=== PATIENT | female | born 1950 | race Two or more races ===

== ENCOUNTER 2022-03-28 11:43 | Emergency (ER) | payer MEDICARE, OTHER, SELFPAY ==
[2022-03-28 12:02] VITALS: BP 159/55; PULSE 76; RESP 18; TEMP 36.7; O2SAT 96; BMI 36.6
[2022-03-28 12:21] LABS: Glucose, Whole Blood 114 mg/dL (60-115)
[2022-03-28 12:23] LABS: MANUAL DIFF FLAG NO
[2022-03-28 12:32] LABS: Basophils Absolute Auto 0.1 X10*3/uL (0.0-0.2); Basophils Percent Auto 0.3 % (0-2); Eosinophils Absolute Auto 0.3 X10*3/uL (0.0-0.4); Eosinophils Percent Auto 1.5 % (0-4); Hematocrit 32.1 % (37.0-47.0); Hemoglobin 10.2 g/dl (12.0-16.0); Imm Gran Abs Auto 0.25 X10*3/uL (0.00-0.03); Imm Gran Pct Auto 1.5 % (0.0-0.4); Lymphocytes Absolute Auto 1.5 X10*3/uL (1.2-4.9); Lymphocytes Percent Auto 9.1 % (20-40); Mean Corpuscular HGB Conc 31.8 g/dl (31.0-35.0); Mean Corpuscular Hemoglobin 26.5 pg (27.0-33.0); Mean Corpuscular Volume 83.4 fL (80.0-98.0); Monocytes Absolute Auto 1.1 X10*3/uL (0.1-1.2); Monocytes Percent Auto 6.8 % (2-11); Neutrophils Absolute Auto 13.1 x10*3/uL (2.0-8.3); Neutrophils Percent Auto 80.8 % (45-73); Platelet Count 558 X10*3/uL (160-400); Red Blood Count 3.85 X10*6/uL (4.20-5.50); Red Cell Distribution Width 14.7 % (11.0-16.0); White Blood Count 16.2 X10*3/uL (4.8-10.8)
[2022-03-28 12:42] LABS: Anion Gap 15 (12-20); Blood Urea Nitrogen 40 mg/dL (9-16); Calcium 9.7 mg/dL (8.4-10.2); Carbon Dioxide 20 mmol/L (22-29); Chloride 111 mmol/L (96-108); Creatinine Clr Calc Pharmacy 42.8; Estimated Glomerular Filt Rate 37; Glucose Random 122 mg/dL (60-115); Potassium 3.3 mmol/L (3.3-5.1); Sodium 143 mmol/L (135-145)
[2022-03-28 16:47] VITALS: BP 167/63; RESP 18; TEMP 35.9
--- NOTE | 2022-03-28 18:36 | ED_ITS ---
HPI - General Adult General Chief complaint: Overdose Stated complaint: ?med overdose Time Seen by Provider: 03/28/22 18:07 Source: patient Mode of arrival: wheelchair Limitations: no limitations History of Present Illness HPI narrative: 71-year-old female presents with her to caregivers for altered mental status. 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 Patient had increase in blood flow to the right foot she states that is doing better all this was done at [facility]. She was seeing vascular surgeon there. Patient denies any falls or injuries but over the weekend has been increasingly out of it. She has been hallucinating and seeing things that were not there. Patient denies chest pain or cough she is now awake she is alert she does recall seeing his children is able to tell that scared her so she took more Ativan. She is on Ativan she had scripts for oxycodone and hydromorphone as well as the Tylenol with codeine. Related Data Allergies Allergy/AdvReac Type Severity Reaction Status Date / Time No Known Allergies Allergy Verified 03/28/22 12:02 Review of Systems Review of Systems: Review of systems: General: Patient denies any fever chills recent illness or falls Musculoskeletal: Denies back pain or body aches or other injuries HEENT: denies headache, runny nose, ear pain Respiratory: denies shortness of breath, cough Cardiovascular: no chest pain or palpitations : denies dysuria, frequency Abdomen: no nausea vomiting denies abdominal pain Extremities: no swelling, no pain Skin: no diaphoresis Yes all other systems are reviewed and are negative Physical Exam ED Vital Signs: Vital Signs - 24 hr 03/28/22 12:02 03/28/22 16:47 Temperature 98.0 F 96.6 F L Pulse Rate 76 Respiratory Rate 18 18 Blood Pressure 159/55 H 167/63 H Pulse Oximetry 96 BMI result Body Mass Index 36.6 General: Well-appearing well-nourished in no signs of distress HEENT: Normocephalic atraumatic Neck: No signs of JVD, no masses no tenderness or lymphadenopathy Cardiovascular: Regular rate and rhythm Respiratory: Clear to auscultation bilaterally Abdomen: Soft nontender no masses Extremities: Normal pedal pulses right lower leg with signs of revascularization and some shoulder the patient her 2nd toe is purplish black she does have a good pulse to her right lower leg 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 Skin: Dry warm no rashes Back: No tenderness full ROM Medical Decision Making MDM Narrative Medical decision making narrative: Family is concerned about overmedication want the patient to get drug testing seems in her system I educated them on our current urine drug screen and its limitations patient has probably overmedicated she is doing better now could take another day or 2 they have taken with Ativan as well as the hydromorphone mode know what would be safe to give her that would not cause her altered mental status said the only thing that will work the Tylenol as she is not a good candidate for ibuprofen. They are happy with this plan they are happy to go home we did offer admission did offer transfer to [facility] they have fine to go home and follow-up as needed. Lab Data Result diagrams: 03/28/22 12:16 03/28/22 12:16 Labs: Lab Results 03/28/22 03/28/22 03/28/22 Range/Units 12:11 12:16 12:16 WBC 16.2 H (4.8-10.8) X10*3/uL RBC 3.85 L (4.20-5.50) X10*6/uL Hgb 10.2 L (12.0-16.0) g/dl Hct 32.1 L (37.0-47.0) % MCV 83.4 (80.0-98.0) fL MCH 26.5 L (27.0-33.0) pg MCHC 31.8 (31.0-35.0) g/dl RDW 14.7 (11.0-16.0) % Plt Count 558 H (160-400) X10*3/uL MPV 9.0 L (9.4-12.3) fL Immature Gran % (Auto) 1.5 H (0.0-0.4) % Neut % (Auto) 80.8 H (45-73) % Lymph % (Auto) 9.1 L (20-40) % Mason % (Auto) 6.8 (2-11) % Eos % (Auto) 1.5 (0-4) % Baso % (Auto) 0.3 (0-2) % Lymph # (Auto) 1.5 (1.2-4.9) X10*3/uL Mason # (Auto) 1.1 (0.1-1.2) X10*3/uL Eos # (Auto) 0.3 (0.0-0.4) X10*3/uL Baso # (Auto) 0.1 (0.0-0.2) X10*3/uL Abs Immat Gran (auto) 0.25 H (0.00-0.03) X10*3/uL Absolute Neuts (auto) 13.1 H (2.0-8.3) x10*3/uL Absolute Nucleated RBC 0.000 (0.0-0.012) X10*3/uL Nucleated RBC % (auto) 0.0 (0.0-0.2) /100WBC Sodium 143 (135-145) mmol/L Potassium 3.3 (3.3-5.1) mmol/L Chloride 111 H (96-108) mmol/L Carbon Dioxide 20 L (22-29) mmol/L Anion Gap 15 (12-20) BUN 40 H (9-16) mg/dL Creatinine 1.40 (0.5-1.4) mg/dL Estim Creat Clear Calc 42.8 Estimated GFR 37 POC Glucose 114 (60-115) mg/dL Random Glucose 122 H (60-115) mg/dL Calcium 9.7 (8.4-10.2) mg/dL Discharge Plan Discharge Clinical Impression: Drug overdose, Polypharmacy Patient Disposition: Home, Self-Care Instructions: Adult Overdose (ED), Narcotic Safety (ED), Opioid Safety (ED), Prescription Narcotic Overdose (ED), Benzodiazepine Overdose (ED), Benzodiazepine Abuse (ED) Additional Instructions: Please call for medications tried Tylenol he can try half dose of the hydromorphone as needed do not mix this with Ativan.
== END 2022-03-28 20:02 | disposition home or self-care (01) ==
PROVIDERS: Emergency Provider Student in an Organized Health Care Education/Training Program
DX: T40.2X1A Poisoning by other opioids, accidental (unintentional), initial encounter (principal); Y92.009 Unspecified place in unspecified non-institutional (private) residence as the place of occurrence of the external cause; Z79.899 Other long term (current) drug therapy
CPT/HCPCS: 36415; 80048; 82947; 85025; 99282; 99283